=== PATIENT | male | born 1975 | race Two or more races ===

== ENCOUNTER 2016-09-19 02:30 | Emergency (ER) | payer SELFPAY ==
[~2016-09-19] VITALS: Ht 172.7 cm; Wt 72.6 kg
[~2016-09-19 02:30] MED LIST: ALBU8.5H2 INH; BUPR75TA3 PO; DIVA500T2 PO; GLIP10TA11 PO; LEVE500T9 PO; METF500T4 PO; OMEP20CA10 PO; QUET300T2 PO; ZOLP10TA2 PO
[2016-09-19] MEDS ORDERED: LORAZEPAM INJ 2 MG/ML VIAL ONE (02:48)
[2016-09-19] MEDS ORDERED: WATER FOR INJECTION,STERILE 10 ML ONE (02:48)
[2016-09-19] MEDS ORDERED: OLANZAPINE 10 MG VIAL IM ONE ×2 (02:48→03:00)
[2016-09-19] MEDS ORDERED: LORAZEPAM INJ 2 MG/ML VIAL IM ONE (03:00)
[2016-09-19] MEDS ORDERED: LEVETIRACETAM (250 MG) 250 MG TABLET PO ONE ×2 (03:00→03:02)
[2016-09-19 03:09] LABS: BASOPHILS % (AUTO) 0.2 % (0.0-2.0); DIFF TOTAL % 100 %; EOSINOPHILS # (AUTO) 0.1 /CMM (0.0-0.7); HEMATOCRIT 50 % (39-51); HEMOGLOBIN 16.4 g/dL (13.5-17.5); LYMPHOCYTES # (AUTO) 2.4 /CMM (0.8-4.8); LYMPHOCYTES % (AUTO) 22.3 % (20.0-44.0); MEAN CORPUSCULAR HEMOGLOBIN 30 PG (26.0-33.0); MEAN CORPUSCULAR HGB CONC 33 g/dl (31.0-36.0); MEAN CORPUSCULAR VOLUME 91 fL (80-96); MONOCYTES # (AUTO) 0.3 /CMM (0.1-1.30); NEUTROPHILS # (AUTO) 7.8 /CMM (1.8-8.9); NEUTROPHILS % (AUTO) 73.5 % (43.0-81.0); PLATELET COUNT (AUTO) 230 /CMM (150-450); RED BLOOD CELL COUNT(AUTO) 5.47 MIL/uL (4.5-6.0); WHITE BLOOD COUNT (AUTO) 10.6 K/uL (4.3-11.0)
[2016-09-19] MEDS ORDERED: DEXAMETHASONE SOD PHOSPHATE 10 MG/ML VIAL ONE ×2 (03:10→03:27)
[2016-09-19] MEDS ORDERED: ALBUTEROL FS 2.5 MG/3 ML VIAL.NEB ONE (03:14)
[2016-09-19] MEDS ORDERED: IPRATROPIUM NEB FS 0.5 MG/2.5 ML AMPUL.NEB ONE (03:15)
[2016-09-19 03:21] LABS: ANION GAP 12 (5-14); CALCIUM, SERUM 8.9 mg/dL (8.5-10.1); CARBON DIOXIDE 28 mmol/L (21-32); CHLORIDE 102 mmol/L (98-107); CREATININE 0.9 mg/dL (0.6-1.3); GFR 93 mL/min (>60); GLUCOSE 151 mg/dL (74-106); POTASSIUM 3.8 mmol/L (3.5-5.1); SODIUM SERUM 138 mmol/L (136-145); UREA NITROGEN, BLOOD 18 mg/dL (7-18)
[2016-09-19 03:27] LABS: ALANINE AMINOTRANSFERASE 61 U/L (12-78); ASPARTATE AMINOTRANSFERASE 31 U/L (15-37); BILIRUBIN,DIRECT 0.2 mg/dL (0.0-0.2); BILIRUBIN,TOTAL 1.2 mg/dL (0.2-1.0); TOTAL PROTEIN, SERUM 7.8 g/dL (6.4-8.2)
[2016-09-19] MEDS ORDERED: DEXAMETHASONE SOD PHOSPHATE 10 MG/ML VIAL IV ONE (03:30)
[2016-09-19] MEDS ORDERED: ALBUTEROL FS 2.5 MG/3 ML VIAL.NEB NEB ONE (03:30)
[2016-09-19] MEDS ORDERED: IPRATROPIUM NEB FS 0.5 MG/2.5 ML AMPUL.NEB NEB ONE (03:30)
[2016-09-19 03:33] LABS: ACETAMINOPHEN 0 ug/ml (10-30); SALICYLATE 1.9 mg/dL (2.8-20.0)
[2016-09-19] MEDS ORDERED: DEXAMETHASONE SOD PHOSPHATE 4 MG/ML VIAL IM ONE (04:30)
[2016-09-19 11:50] VITALS: BP 135/78
== END 2016-09-19 11:50 | disposition home or self-care (01) ==
LOC: ER 02:32
DX: F29 Unspecified psychosis not due to a substance or known physiological condition (principal); F20.9 Schizophrenia, unspecified; J45.909 Unspecified asthma, uncomplicated; Z91.14 Patient's other noncompliance with medication regimen; E11.9 Type 2 diabetes mellitus without complications; F32.9 Major depressive disorder, single episode, unspecified; F31.9 Bipolar disorder, unspecified; F41.9 Anxiety disorder, unspecified; F43.10 Post-traumatic stress disorder, unspecified; Z98.890 Other specified postprocedural states
CPT/HCPCS: 36415; 80048; 80076; 80329; 82962; 85025; 94640 ×2; 96372 ×3; 99284; A4606; G0480 ×2; J1100 ×2; J2060; J3490; G6039-TC

== ENCOUNTER 2017-10-23 19:50 | Emergency (ER) | payer MEDICAID ==
[~2017-10-23] VITALS: Ht 170.2 cm; Wt 90.7 kg
[~2017-10-23 19:50] MED LIST changes: -ALBU8.5H2 INH; +ALBU8.5H8 INH; +METF-440 PO; -METF500T4 PO
--- NOTE | 2017-10-23 20:04 | NUR ---
PT AMBULATORY TO ER BED 14. BIBSELF C/O +SI/+HI "VOICES TELLING ME TO KILL PEOPLE" - SI PLAN. SUICIDE/SAFETY PRECAUTIONS IN PLACE. PT PLACED IN GOWN AND ON FINAL CIGAR AND BOX EXAMINER. VSS/RESP EVEN UNLABORED/NAD NOTED/SKIN WARM AND DRY/DENIES N-V-D/AFEBRILE/AOX4. CHEMICAL APPLICATOR AT BEDSIDE FOR EVAL.
--- NOTE | 2017-10-23 20:06 | NUR ---
LAB AT BEDSIDE FOR DRAW.
[2017-10-23 20:18] LABS: CALCIUM, SERUM 9.5 mg/dL (8.5-10.1); CARBON DIOXIDE 29 mmol/L (21-32); CHLORIDE 101 mmol/L (98-107); CREATININE 0.9 mg/dL (0.6-1.3); GLUCOSE 229 mg/dL (74-106); POTASSIUM 3.7 mmol/L (3.5-5.1); SODIUM SERUM 138 mmol/L (136-145); UREA NITROGEN, BLOOD 19 mg/dL (7-18)
[2017-10-23] MEDS ORDERED: LORAZEPAM 1 MG TABLET ONE (20:25)
[2017-10-23 20:26] LABS: ALANINE AMINOTRANSFERASE 60 U/L (12-78); ALBUMIN 3.8 g/dL (3.4-5.0); ALCOHOL, BLOOD < 3 mg/dL (0-0); ALKALINE PHOSPHATASE 91 U/L (46-116); ASPARTATE AMINOTRANSFERASE 90 U/L (15-37); BILIRUBIN,DIRECT 0.1 mg/dL (0.0-0.2); BILIRUBIN,TOTAL 0.4 mg/dL (0.2-1.0); TOTAL PROTEIN, SERUM 8.5 g/dL (6.4-8.2)
[2017-10-23] MEDS ORDERED: LORAZEPAM 1 MG TABLET PO ONE (20:30)
[2017-10-23 20:37] LABS: SALICYLATE 1.6 mg/dL (2.8-20.0)
[2017-10-23 20:38] LABS: ACETAMINOPHEN < 2 ug/ml (10-30)
[2017-10-23 20:42] LABS: BASOPHILS % (AUTO) 0.3 % (0.0-2.0); EOSINOPHILS % (AUTO) 1.3 % (0.0-6.0); HEMATOCRIT 44 % (39-51); HEMOGLOBIN 15.1 g/dL (13.5-17.5); LYMPHOCYTES # (AUTO) 1.8 /CMM (0.8-4.8); LYMPHOCYTES % (AUTO) 25.4 % (20.0-44.0); MEAN CORPUSCULAR HGB CONC 34 g/dl (31.0-36.0); MEAN CORPUSCULAR VOLUME 90 fL (80-96); MONOCYTES # (AUTO) 0.7 /CMM (0.1-1.30); MONOCYTES % (AUTO) 10.4 % (2.0-12.0); NEUTROPHILS # (AUTO) 4.4 /CMM (1.8-8.9); NEUTROPHILS % (AUTO) 62.6 % (43.0-81.0); PLATELET COUNT (AUTO) 284 /CMM (150-450); RDW COEFFICIENT OF VARIATION 12.6 (11.5-15.0); RED BLOOD CELL COUNT(AUTO) 4.85 MIL/uL (4.5-6.0); WHITE BLOOD COUNT (AUTO) 7.1 K/uL (4.3-11.0)
--- NOTE | 2017-10-23 20:46 | NUR ---
PAGED PINKY FOR EVAL
--- NOTE | 2017-10-23 21:04 | NUR ---
URINE SPECIMEN SENT TO THE LAB.
[2017-10-23 21:06] LABS: BILIRUBIN,URINE Negative (NEGATIVE); BLOOD, URINE Large Ery/uL (NEGATIVE); COLOR,URINE Yellow (YELLOW); KETONES,URINE Trace (NEGATIVE); LEUKOCYTE ESTERASE ,URINE Trace (NEGATIVE); NITRITE, URINE Negative (NEGATIVE); PH,URINE 5.5 (5.0-8.0); PROTEIN,URINE 100 mg/dl (NEGATIVE); UGLUCOSE >=1000 mg/dL (NEGATIVE); UROBILINOGEN,URINE 0.2 EU/dL (0.2)
[2017-10-23 21:09] LABS: APPEARANCE,URINE SLIGHTLY CLOUDY (CLEAR)
[2017-10-23 21:16] LABS: BACTERIA,URINE Moderate /HPF (None Seen); SQUAMOUS EPITHELIAL CELL,UR Many /HPF (None Seen)
[2017-10-23 21:19] LABS: WBC,URINE 0-2 /HPF (0-3)
[2017-10-23] MEDS ORDERED: OLANZAPINE 5 MG TABLET ONE (21:54)
[2017-10-23] MEDS ORDERED: OLANZAPINE 5 MG TABLET PO ONE (22:00)
--- NOTE | 2017-10-23 22:06 | NUR ---
PINKY AT BEDSIDE FOR EVAL.
--- NOTE | 2017-10-23 23:12 | NUR ---
[facility] CALLED FOR TRANSPORT. ETA 1 HR.
--- NOTE | 2017-10-23 23:12 | NUR ---
PT ACCEPTED BY DR GONZALEZ. # FOR REPORT [phone]
--- NOTE | 2017-10-24 00:07 | NUR ---
REPORT GIVEN TO SUKI FOR [facility]
--- NOTE | 2017-10-24 00:35 | NUR ---
[facility] AT BEDSIDE FOR TRANSPORT TO [facility].
[2017-10-24 00:47] VITALS: BP 131/72
== END 2017-10-24 00:48 ==
LOC: ER 19:50
DX: F23 Brief psychotic disorder (principal); R45.851 Suicidal ideations; R45.850 Homicidal ideations; F25.9 Schizoaffective disorder, unspecified; J45.909 Unspecified asthma, uncomplicated; E11.9 Type 2 diabetes mellitus without complications; G89.29 Other chronic pain; F43.10 Post-traumatic stress disorder, unspecified; Z79.84 Long term (current) use of oral hypoglycemic drugs
CPT/HCPCS: 36415; 80048; 80076; 80305; 80329; 81001; 82962; 85025; 87086; 99285; A4606; G0480 ×2; Z7610; 81000-TC

== ENCOUNTER 2019-04-26 04:05 | Emergency (ER) | payer MEDICAID ==
[~2019-04-26] VITALS: Ht 172.7 cm; Wt 86.6 kg
[~2019-04-26 04:05] MED LIST changes: -OMEP20CA10 PO; +OMEP20CA11 PO
--- NOTE | 2019-04-26 04:20 | NUR ---
KALEN FROM STREET. TO ER BED 9. AAOX4. NO RESP DISTRESS NOTED. AMBULATORY. C/O SUICIDAL IDEATION. PT REPORTS THAT HE HEARS VOICE, CRYING, WHICH IS OVERWHELMING HIM AND MAKES HIM WANTS TO HURT HIMSELF BY TAKING PILLS TO STOP THE VOICE. DENIES HI AND VISUAL HALLUCINATIONS. PT IS SEEKING HELP VOLUNTARILY. DENIES ANY PAIN. MADE AWARE. URINE COLLECTED AND SENT TO LAB.
[2019-04-26 04:26] LABS: BASOPHILS # (AUTO) 0.1 /CMM (0.0-0.2); BASOPHILS % (AUTO) 1.2 % (0.0-2.0); EOSINOPHILS % (AUTO) 0.9 % (0.0-6.0); HEMATOCRIT 47 % (39-51); HEMOGLOBIN 16.4 g/dL (13.5-17.5); LYMPHOCYTES % (AUTO) 21.7 % (20.0-44.0); MEAN CORPUSCULAR HGB CONC 35 g/dl (31.0-36.0); MEAN CORPUSCULAR VOLUME 94 fL (80-96); MONOCYTES # (AUTO) 0.6 /CMM (0.1-1.30); MONOCYTES % (AUTO) 6.4 % (2.0-12.0); NEUTROPHILS # (AUTO) 6.5 /CMM (1.8-8.9); NEUTROPHILS % (AUTO) 69.8 % (43.0-81.0); PLATELET COUNT (AUTO) 330 /CMM (150-450); RED BLOOD CELL COUNT(AUTO) 5.03 MIL/uL (4.5-6.0); WHITE BLOOD COUNT (AUTO) 9.3 K/uL (4.3-11.0)
[2019-04-26 04:28] LABS: APPEARANCE,URINE Clear (CLEAR); BILIRUBIN,URINE Negative (NEGATIVE); BLOOD, URINE Trace-lysed Ery/uL (NEGATIVE); COLOR,URINE Yellow (YELLOW); KETONES,URINE Negative (NEGATIVE); LEUKOCYTE ESTERASE ,URINE Negative (NEGATIVE); NITRITE, URINE Negative (NEGATIVE); PH,URINE 5.5 (5.0-8.0); PROTEIN,URINE 100 mg/dl (NEGATIVE); UGLUCOSE Negative (NEGATIVE); UROBILINOGEN,URINE 0.2 EU/dL (0.2)
[2019-04-26 04:36] LABS: CALCIUM, SERUM 9.2 mg/dL (8.5-10.1)
[2019-04-26 04:40] LABS: BACTERIA,URINE Few /HPF (None Seen); RBC,URINE 0-2 /HPF (0-2); SQUAMOUS EPITHELIAL CELL,UR Rare /HPF (None Seen); WBC,URINE 0-2 /HPF (0-3)
[2019-04-26 04:41] LABS: ALBUMIN 4.2 g/dL (3.4-5.0); BILIRUBIN,DIRECT 0.1 mg/dL (0.0-0.2); BILIRUBIN,TOTAL 0.3 mg/dL (0.2-1.0); TOTAL PROTEIN, SERUM 8.5 g/dL (6.4-8.2)
--- NOTE | 2019-04-26 04:43 | NUR ---
PT STRIPPED OFF BELONGINGS AND CLOTHING, PLACE IN LOCKER IN LOCKER LOCATED IN UTILITY ROOM. PT WAS ALSO VISUALY INSPECTED
[2019-04-26] MEDS ORDERED: OLANZAPINE 5 MG TABLET PO ONE (05:00)
[2019-04-26] MEDS ORDERED: OLANZAPINE 5 MG TABLET ONE (05:43)
--- NOTE | 2019-04-26 06:40 | NUR ---
ART, SOLE POLISHER CALLED FOR PSYCH EVAL.
--- NOTE | 2019-04-26 06:54 | NUR ---
S/W [email or web address], FAXED ALL CLINICAL INFO, WILL HOLD BED FOR PT. AWAITING EVAL MACY CARLIN.
[2019-04-26] MEDS ORDERED: QUETIAPINE FUMARATE 100 MG TABLET PO SCH (07:00)
[2019-04-26] MEDS ORDERED: DIVALPROEX SODIUM 250 MG TABLET.DR PO ONE ×2 (07:00→07:05)
[2019-04-26] MEDS ORDERED: clonazePAM 1 MG TABLET PO ONE (07:00)
[2019-04-26] MEDS ORDERED: QUETIAPINE FUMARATE 100 MG TABLET PO ONE (07:00)
[2019-04-26] MEDS ORDERED: clonazePAM 1 MG TABLET ONE (07:05)
[2019-04-26] MEDS ORDERED: QUETIAPINE FUMARATE 25 MG TABLET ONE (07:05)
--- NOTE | 2019-04-26 07:44 | NUR ---
SERIQUEL ORDER DUPLICATE, VERIFIED WITH MD TO ONLY GIVE X 1 OF SEROQUEL 100MG.
--- NOTE | 2019-04-26 07:47 | NUR ---
Social service consult requested by Dr. Stanley for suicidal ideations with a plan. Pt. is a 44 year old male who was brought in for elevated blood pressure and suicidal with plans to take pills to overdose. SW met with the pt. bedside. Pt. is alert and oriented x 3. Pt. has a sad affect. Pt. has tangential speech. Pt. is homeless. He states he lives in his car which [facility] in [facility]. Pt. states he is suicidal with a plan to overdose on pills. Pt.. has a psychiatric diagnosis of Schizoaffective and states he takes Seroquel 700 mg, Klonopin 20mg and Depakote 500 mg (2xday). Pt. states he has been non-compliant with his medications. Pt. informed SW he had a seizure few days ago and fell and hurt his nose. Pt. has been binge drinking for the past week. Pt. is a methamphetamine user and last used yesterday. Pt. is currently in the final process of receiving his SSDI. Per ED RN, clinicals were faxed to intake at [facility] this morning. SW to follow up with intake regarding accepting pt. to [facility].
--- NOTE | 2019-04-26 08:11 | NUR ---
MACY called intake at and spoke with Reinaldo who informed MACY that the nursing wax room supervisor is reviewing the clinicals and will follow up with SW or ED staff.
--- NOTE | 2019-04-26 11:20 | NUR ---
CALL FROM RACHEL CARPENTER, WAITING ON A BED FOR [facility]
--- NOTE | 2019-04-26 11:21 | NUR ---
MACY called intake at and spoke with Lars who informed MACY that pt. is accepted at [facility], however they are awaiting discharges. He will contact MACY as soon as a bed is available. MACY updated CRN Gener with aforementioned information.
--- NOTE | 2019-04-26 11:27 | NUR ---
CALLED [facility] INTAKE FOR UPDATE ON BED SPOKE TO SUZY. WAS TOLD [facility] WOULD FOLLOW UP AND CALL BACK
--- NOTE | 2019-04-26 11:34 | NUR ---
Received a call from Lars at intake stating pt. has been accepted at [facility], psychiatrist Dr. Mojica and Primary Physician Dr. Garcia. Nurse report to JACK Koroma at . MACY updated OCTAVIO Johansen with aforementioned information.
--- NOTE | 2019-04-26 11:40 | NUR ---
REPORT GIVEN TO OCTAVIO RAMIREZ OF [facility] FOR RAISA.
--- NOTE | 2019-04-26 12:06 | NUR ---
[facility] GRAEME BHANDARI [id number] TRIP#[id number]
[2019-04-26 13:40] VITALS: BP 125/76
--- NOTE | 2019-04-26 13:40 | NUR ---
TRANSPORTED TO [facility]. STABLE CONDITION.
== END 2019-04-26 13:42 ==
LOC: ER 04:05
DX: F23 Brief psychotic disorder (principal); I10 Essential (primary) hypertension; J45.909 Unspecified asthma, uncomplicated; E11.9 Type 2 diabetes mellitus without complications; F32.9 Major depressive disorder, single episode, unspecified; F41.9 Anxiety disorder, unspecified; Z98.890 Other specified postprocedural states; Z59.0 Homelessness; Z79.899 Other long term (current) drug therapy; Z79.84 Long term (current) use of oral hypoglycemic drugs
CPT/HCPCS: 36415; 80048; 80076; 80305; 80307; 80329; 81001; 85025; 99285; G0480; 81000-TC